=== PATIENT | female | born 2000 | race Caucasian/White ===

== ENCOUNTER → 2018-01-25 | Outpatient (CLI) | payer BC ==
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
== END | disposition home or self-care (01) ==
LOC: CT 14:14
PROVIDERS: ATTEND Physician Assistant
DX: R51 Headache (principal); R42 Dizziness and giddiness; H53.8 Other visual disturbances
CPT/HCPCS: 70450

== ENCOUNTER 2020-07-07 15:12 | Emergency (ER) | payer BC ==
[~2020-07-07] VITALS: Ht 157.5 cm; Wt 54.5 kg
--- NOTE | 2020-07-07 15:29 | PHYS DOC ---
Past History Past Medical History: Other (Illicit drug dependence) Drug Use: Amphetamine, Benzodiazepine, Cocaine, Marijuana, Methamphetamine, Opiates Adult General Chief Complaint Chief Complaint: DRUG ABUSE HPI HPI Patient is a 20-year-old female who presents for drug abuse. Patient has a long history of this, reports being addicted to heroin and opioids predominantly. Patient has had spells of abstinence but relapses often. Patient reports using methamphetamine and heroin approximately 24 hours ago, in addition, patient took a friend's " I think fentanyl laced Percocet" at that time. Patient reports being extremely intoxicated ever since. She fell asleep and woke up " not feeling right" prompting her to come in for evaluation. She reports continued feelings of being high, mild headache, and paresthesias in upper extremities. Denies any vision changes, chest pain, shortness of breath, abdominal pain, urinary symptoms. She is wanting help at this time Review of Systems Review of Systems Fourteen body systems of review of systems have been reviewed. See HPI for pertinent positives and negative responses, other serrano all other systems are negative, non-pertinent or non-contributory Physical Exam Physical Exam Constitutional: Well developed, well nourished, no acute distress, non-toxic appearance. HENT: Normocephalic, atraumatic, bilateral external ears normal, oropharynx moist, no oral exudates, nose normal. Eyes: PERRLA, EOMI, conjunctiva normal, no discharge. Neck: Normal range of motion, no tenderness, supple, no stridor. Cardiovascular: Heart rate regular, sinus rhythm, no murmurs rubs or gallops Lungs & Thorax: Bilateral breath sounds clear to auscultation Abdomen: Bowel sounds normal, soft, no tenderness, no masses, no pulsatile masses. Nonsurgical abdomen, no peritoneal signs Skin: Warm, dry, no erythema, no rash. Back: No tenderness, no CVA tenderness. Extremities: No tenderness, no cyanosis, no clubbing, ROM intact, no edema. Neurologic: Alert and oriented X 3, grossly normal motor & sensory function, no focal deficits noted. Psychologic: Tearful affect, judgement normal, anxious mood Current Patient Data Vital Signs Vital Signs Date Time Temp Pulse Resp B/P (MAP) Pulse Ox O2 Delivery O2 Flow Rate FiO2 07/07/20 16:17 98.6 94 18 115/62 (79) 97 Lab Results Laboratory Tests Test 9/12/20 15:23 07/07/20 15:35 07/07/20 15:45 Urine Collection Type Unknown Urine Color Yellow Urine Clarity Hazy Urine pH 6.5 Urine Specific [place] >=1.030 Urine Protein Trace (NEG-TRACE) Urine Glucose (UA) Neg mg/dL (NEG) Urine Ketones (Stick) Neg mg/dL (NEG) Urine Blood Trace (NEG) Urine Nitrite Neg (NEG) Urine Bilirubin Neg (NEG) Urine Urobilinogen Dipstick 0.2 mg/dL (0.2 mg/dL) Urine Leukocyte Esterase Neg (NEG) Urine RBC 1-2 /HPF (0-2) Urine WBC 1-4 /HPF (0-4) Urine Squamous Epithelial Cells Mod /LPF Urine Bacteria Few /HPF (0-FEW) Urine Mucus Marked /LPF Urine Opiates Screen Neg (NEG) Urine Methadone Screen Neg (NEG) Urine Barbiturates Neg (NEG) Urine Phencyclidine Screen Neg (NEG) Urine Amphetamine/Methamphetamine Pos (NEG) Urine Benzodiazepines Screen Pos (NEG) Urine Cocaine Screen Neg (NEG) Urine Cannabinoids Screen Pos (NEG) Urine Ethyl Alcohol Neg (NEG) White Blood Count 10.6 x10^3/uL (4.0-11.0) Red Blood Count 4.56 x10^6/uL (3.50-5.40) Hemoglobin 14.5 g/dL (12.0-15.5) Hematocrit 43.7 % (36.0-47.0) Mean Corpuscular Volume 96 fL (79-100) Mean Corpuscular Hemoglobin 32 pg (25-35) Mean Corpuscular Hemoglobin Concent 33 g/dL (31-37) Red Cell Distribution Width 13.2 % (11.5-14.5) Platelet Count 222 x10^3/uL (140-400) Neutrophils (%) (Auto) 73 % (31-73) Lymphocytes (%) (Auto) 19 % (24-48) Monocytes (%) (Auto) 7 % (0-9) Eosinophils (%) (Auto) 1 % (0-3) Basophils (%) (Auto) 0 % (0-3) Neutrophils # (Auto) 7.7 x10^3uL (1.8-7.7) Lymphocytes # (Auto) 2.0 x10^3/uL (1.0-4.8) Monocytes # (Auto) 0.7 x10^3/uL (0.0-1.1) Eosinophils # (Auto) 0.1 x10^3/uL (0.0-0.7) Basophils # (Auto) 0.0 x10^3/uL (0.0-0.2) Sodium Level 141 mmol/L (136-145) Potassium Level 3.6 mmol/L (3.5-5.1) Chloride Level 104 mmol/L (98-107) Carbon Dioxide Level 25 mmol/L (21-32) Anion Gap 12 (6-14) Blood Urea Nitrogen 9 mg/dL (7-20) Creatinine 0.7 mg/dL (0.6-1.0) Estimated GFR (Cockcroft-Gault) 104.6 BUN/Creatinine Ratio 13 (6-20) Glucose Level 89 mg/dL (70-99) Calcium Level 9.6 mg/dL (8.5-10.1) Total Bilirubin 0.8 mg/dL (0.2-1.0) Aspartate Amino Transf (AST/SGOT) 13 U/L (15-37) Alanine Aminotransferase (ALT/SGPT) 16 U/L (14-59) Alkaline Phosphatase 68 U/L (46-116) Creatine Kinase 67 U/L (26-192) Troponin I Quantitative < 0.017 ng/mL (0-0.055) Total Protein 7.8 g/dL (6.4-8.2) Albumin 4.5 g/dL (3.4-5.0) Albumin/Globulin Ratio 1.4 (1.0-1.7) Bedside Urine HCG, Qualitative hcg negative (Negative) EKG EKG EKG ordered and interpreted by myself at 1613 hrs. as sinus rhythm at 56 bpm, unremarkable intervals, no axis deviation, incomplete right bundle branch block, no acute ischemic findings, no STEMI Radiology/Procedures Radiology/Procedures [] Course & Med Decision Making Course & Med Decision Making Well-appearing ambulatory patient seen on immediate ER arrival ABCs grossly non-concerning Comprehensive history and physical exam obtained, subsequent diagnostic work-up ordered IV access obtained, 1 L IV normal saline and 325 mg p.o. Tylenol administered Patient observed and reassessed numerous times throughout ER visit by various infertility medical assistant. Remained stable without any concerning changes and vitals, mentation and/or other physical exam findings I discussed most likely diagnosis of residual effects of ongoing illicit substance use. I discussed limited need for further diagnostic work-up and/or need for admission for continued medical care given patient is hemodynamically stable and tolerating p.o. intake I did disclose this might be an acute presentation of more concerning pathology but again this is less likely Patient has PCP in local area but has not followed up in several months, I advised her to do so. Patient also has numerous resources and contact information from prior inpatient substance abuse treatment facilities for which she wants to reach out for help again, I agree with this Ultimately, patient fit and stable for discharge home with continued supportive care and illicit drug use cessation advised Strict return precautions were discussed with good understanding by patient, all questions and concerns addressed prior to ER departure home. Patient had friend come and pick her up to drive her home Dragon Disclaimer Dragon Disclaimer This electronic medical record was generated, in whole or in part, using a voice recognition dictation system. Departure Departure: Impression: Primary Impression: Polysubstance abuse Additional Impression: Polysubstance dependence Disposition: 01 HOME/RESIDENCE PRIOR TO ADM Condition: STABLE Referrals: PCP,NO (PCP) Patient Instructions: Addiction and the Family, Alcohol and Drug Addiction, Finding Treatment Justification of Admission: Justification of Admission: Justification of Admission Dx: N/A Problem Qualifiers LIZ DENNIS DO Jul 07, 2020 15:29
[2020-07-07] MEDS ORDERED: IV NORMAL SALINE 1,000ML 1,000 ML IV ONE (15:30)
[2020-07-07 15:55] LABS: BASO % 0 % (0-3); EOS # 0.1 x10^3/uL (0.0-0.7); EOS % 1 % (0-3); HEMATOCRIT 43.7 % (36.0-47.0); HEMOGLOBIN 14.5 g/dL (12.0-15.5); LYMPH % 19 % (24-48); MEAN CORPUSCULAR HEMOGLOBIN 32 pg (25-35); MEAN CORPUSCULAR HGB CONC 33 g/dL (31-37); MEAN CORPUSCULAR VOLUME 96 fL (79-100); MONO # 0.7 x10^3/uL (0.0-1.1); MONO % 7 % (0-9); NEUT # 7.7 x10^3uL (1.8-7.7); NEUT % 73 % (31-73); PLATELET COUNT 222 x10^3/uL (140-400); RED BLOOD COUNT 4.56 x10^6/uL (3.50-5.40); RED CELL DISTRIBUTION WIDTH 13.2 % (11.5-14.5); WHITE BLOOD COUNT 10.6 x10^3/uL (4.0-11.0)
[2020-07-07] MEDS ORDERED: ACETAMINOPHEN 325 MG TABLET PO ONE (15:59)
[2020-07-07 16:02] LABS: CALCIUM 9.6 mg/dL (8.5-10.1); CREATININE 0.7 mg/dL (0.6-1.0); GFR 104.6; POTASSIUM 3.6 mmol/L (3.5-5.1)
[2020-07-07 16:03] LABS: AMPHETAMINE/METHAMPHETAMINE POS (NEG); BARBITURATES NEG (NEG); BENZODIAZEPINES POS (NEG); CANNABINOIDS POS (NEG); COCAINE NEG (NEG); METHADONE NEG (NEG); OPIATES NEG (NEG); PHENCYCLIDINE NEG (NEG)
[2020-07-07 16:08] LABS: ALBUMIN 4.5 g/dL (3.4-5.0); ALBUMIN/GLOBULIN RATIO 1.4 (1.0-1.7); TOTAL BILIRUBIN 0.8 mg/dL (0.2-1.0); TOTAL PROTEIN 7.8 g/dL (6.4-8.2)
[2020-07-07 16:16] LABS: BACTERIA,URINE FEW /HPF (0-FEW); BILIRUBIN,URINE NEG (NEG); CLARITY,URINE HAZY; COLOR,URINE YELLOW; GLUCOSE,URINE NEG (NEG); NITRITE,URINE NEG (NEG); SQUAMOUS EPITHELIAL CELL,UR MOD /LPF; UROBILINOGEN,URINE 0.2 mg/dL (0.2 mg/dL)
[2020-07-07 16:17] VITALS: BP 115/62
--- NOTE | 2020-07-08 09:43 | EKG ---
[address] [address] Test Date: 2020-07-07 Test Time: 16:10:04 Pat Name: KAMRON POLLOCK Department: Room: Gender: F Sample Book Maker: TEJAL : 2000 Requested By: LIZ DENNIS Order Number: [id number] Reading MD: Measurements Intervals [place] Rate: 56 P: 68 UT: 138 QRS: 46 QRSD: 98 T: 40 QT: 436 QTc: 423 Interpretive Statements SINUS RHYTHM LEFT ATRIAL ABNORMALITY INCOMPLETE RIGHT BUNDLE BRANCH BLOCK ABNORMAL ECG RI6.02 No previous ECG available for comparison
== END 2020-07-07 17:49 | disposition home or self-care (01) ==
LOC: ER 15:12
DX: F19.20 Other psychoactive substance dependence, uncomplicated (principal); F15.10 Other stimulant abuse, uncomplicated; F14.10 Cocaine abuse, uncomplicated; F12.10 Cannabis abuse, uncomplicated; F11.10 Opioid abuse, uncomplicated
CPT/HCPCS: 36415; 80053; 80307; 81001; 81025; 82550; 84484; 85025; 93005; 99284

== ENCOUNTER 2020-12-04 18:16 | Emergency (ER) | payer BC ==
[~2020-12-04] VITALS: Ht 157.5 cm; Wt 50.1 kg
--- NOTE | 2020-12-04 18:20 | PHYS DOC ---
Past History Past Medical History: Migraines, UTI, Other Past Surgical History: No Surgical History Alcohol Use: None Drug Use: Amphetamine, Benzodiazepine, Cocaine, Marijuana, Methamphetamine, Opiates General Adult HPI: HPI: Patient is a 20 year old female who presents with above hx and complaints of headache and ear ache. Ear ache started in Lt ear and move to Rt. ear. No hx. of trauma. Has had Dysuria and was taking AZO -otc. Pt. does complain of mild headache. Has hx migraines. No hx of travel or specific ill contacts. Pt. follows with Dr. Potter for primary care. Pt. does smoke and use marijuana. Pt . denies any immunosuppression or HIV. Review of Systems: Review of Systems: Constitutional: Denies fever or chills Eyes: Denies change in visual acuity HENT: complaints of ear ache Respiratory: Denies cough or shortness of breath Cardiovascular: Denies chest pain or edema GI: Denies abdominal pain, nausea, vomiting, bloody stools or diarrhea : Denies dysuria Musculoskeletal: Denies back pain or joint pain Integument: Denies rash Neurologic: Complains of headache,. Last focal weakness or sensory changes Endocrine: Denies polyuria or polydipsia Lymphatic: Denies swollen glands Psychiatric: Denies depression or anxiety Family History: Family History: Noncontributory to presentation Current Medications: Current Meds: See nursing for home meds Allergies: Allergies: Allergies Coded Allergies Type Severity Reaction Last Updated Verified No Known Drug Allergies 07/07/20 No Physical Exam: PE: Constitutional: Well developed, well nourished, no acute distress, non-toxic appearance. [] HENT: Normocephalic, atraumatic, bilateral external ears normal, oropharynx moist, mild injection pharynx, no oral exudates, nose normal. Mild external canal irritation bilateral Eyes: PERRLA, EOMI, conjunctiva normal, no discharge. [] Neck: Normal range of motion, no tenderness, supple, no stridor. [] Cardiovascular:Heart rate regular rhythm, no murmur [] Lungs & Thorax: Bilateral breath sounds equal apex on o auscultation [. Few scattered wheezes Abdomen: Bowel sounds normal, soft, no tenderness, no masses, no pulsatile masses. [] Skin: Warm, dry, no erythema, no rash. [] Back: No tenderness, no CVA tenderness. [] Extremities: No tenderness, no cyanosis, no clubbing, ROM intact, no edema. [] Neurologic: Alert and oriented X 3, normal motor function, normal sensory function, no focal deficits noted. DTRs +2 patella brachial. Sap Basis equal. No drift. Ambulatory without problems. Psychologic: Affect anxious, judgement normal, mood normal. [] EKG: EKG: [] Radiology/Procedures: Radiology/Procedures: [] Heart Score: Risk Factors: Risk Factors: DM, Current or recent (<one month) smoker, HTN, HLP, family history of CAD, obesity. Risk Scores: Score 0 - 3: 2.5% MACE over next 6 weeks - Discharge Home Score 4 - 6: 20.3% MACE over next 6 weeks - Admit for Clinical Observation Score 7 - 10: 72.7% MACE over next 6 weeks - Early Invasive Strategies Course & Med Decision Making: Course & Med Decision Making Pertinent Labs and Imaging studies reviewed. (See chart for details) Patient Tylenol and ibuprofen for pain. For pain may take Vicoprofen up to 4 times a day. Use Cortisporin eardrops both ears up to 4 times a day. Follow-up Mauri. Return if any concerns. Avoid use of Q-tips in ears. Follow-up in Urine cultures. Keep ears covered when out in the cold. Follow-up primary care. Impression: 1. Otitis Externa 2. Complaints of dysuria [] Dragon Disclaimer: Dragon Disclaimer: This electronic medical record was generated, in whole or in part, using a voice recognition dictation system. Departure Departure: Referrals: JOSE CARLOS POTTER MD (PCP) Scripts Hydrocodone/Ibuprofen (HYDROCODONE-IBUPROFEN 7.5-200 ) 1 Each Tablet 1 TAB PO PRN Q6HRS PRN for PAIN, #30 TAB 0 Refills Prov: MAIN RODRIGUEZ MD 12/04/20 Hydrocodone/Ibuprofen (HYDROCODONE-IBUPROFEN 7.5-200 ) 1 Each Tablet 1 TAB PO PRN Q6HRS PRN for PAIN, #30 TAB 0 Refills Prov: MAIN RODRIGUEZ MD 12/04/20 Dragabbe Disclaimer This chart was dictated in whole or in part using Voice Recognition software in a busy, high-work load, and often noisy Emergency Department environment. It may contain unintended and wholly unrecognized errors or omissions. MAIN RODRIGUEZ MD Dec 04, 2020 18:20
[2020-12-04] MEDS ORDERED: ACETAMINOPHEN 500 MG TABLET PO ONE (18:45)
[2020-12-04] MEDS ORDERED: NEOMYCIN/POLYMYXIN/HC OTIC SUSPENSION 10ML BOTTLE. AU SCH (19:00)
[2020-12-04 19:12] LABS: BARBITURATES NEG (NEG); BENZODIAZEPINES POS (NEG); CANNABINOIDS POS (NEG); CLARITY,URINE CLEAR; COCAINE NEG (NEG); METHADONE NEG (NEG); OPIATES NEG (NEG); PHENCYCLIDINE NEG (NEG)
[2020-12-04 19:13] LABS: COLOR,URINE ORANGE
[2020-12-04 19:16] LABS: RBC,URINE OCC /HPF (0-2)
[2020-12-04 19:17] LABS: AMPHETAMINE/METHAMPHETAMINE NEG (NEG)
[2020-12-04 19:18] LABS: BACTERIA,URINE FEW /HPF (0-FEW); SQUAMOUS EPITHELIAL CELL,UR OCC /LPF; WBC,URINE OCC /HPF (0-4)
[2020-12-04] MEDS ORDERED: HYDR-1179 PO ×2 (19:23→19:26)
[2020-12-04 19:25] VITALS: BP 131/77
== END 2020-12-04 19:30 | disposition home or self-care (01) ==
LOC: ER 18:16
DX: H60.92 Unspecified otitis externa, left ear (principal); R30.0 Dysuria; G43.909 Migraine, unspecified, not intractable, without status migrainosus; Z87.440 Personal history of urinary (tract) infections
CPT/HCPCS: 36415; 80307; 81001; 81025; 99283

== ENCOUNTER 2021-06-10 19:24 | Emergency (ER) | payer BC ==
[~2021-06-10] VITALS: Ht 157.5 cm; Wt 50.1 kg
[~2021-06-10 19:24] MED LIST: HYDR-1179 PO
--- NOTE | 2021-06-10 19:53 | PHYS DOC ---
Past History Past Medical History: Migraines, UTI, Other Past Surgical History: No Surgical History Alcohol Use: Occasionally Drug Use: Amphetamine, Benzodiazepine, Cocaine, Marijuana, Methamphetamine, Opiates Adult General Chief Complaint Chief Complaint: OVERDOSE [facility] HPI Patient is a 21 year old female who presents with overdose having taken 9 tablets of 50 mg of trazodone. Patient states that she has been dealing with a lot of issues including getting eviction notice today, was also tired having not slept and now felt that she should take medication but decided that due to all his problems, she would perhaps end her life. There were 10 tablets left in her bottle 1 of which spilled and she took 9 tablets approximately 45 minutes prior to arrival to emergency department. She then became remorseful and called ambulance on her own. She on arrival states that she is not actively trying to kill herself but is dealing with a lot of situation. She denies any violent thoughts. She previously has had 1 previous suicidal ideation episode 2 to 3 years ago and was admitted to [facility]. She normally does not take trazodone on a regular basis but have it as it was prescribed previously. She states that she has had some depression and anxiety. She at present denies any difficulty breathing, chest pain, shortness of breath, fever, abdominal pain, dysuria. She does admit to using meth amphetamine within the last day or so. She denies other complaints. Review of Systems Review of Systems Constitutional: Denies fever or chills [] Eyes: Denies change in visual acuity, redness, or eye pain [] HENT: Denies nasal congestion or sore throat [] Respiratory: Denies cough or shortness of breath [] Cardiovascular: No additional information not addressed in HPI [] GI: Denies abdominal pain, nausea, vomiting, bloody stools or diarrhea [] : Denies dysuria or hematuria [] Musculoskeletal: Denies back pain or joint pain [] Integument: Denies rash or skin lesions [] Neurologic: Denies headache, focal weakness or sensory changes [] Endocrine: Denies polyuria or polydipsia [] All other systems were reviewed and found to be within normal limits, except as documented in this note. Family History Family History Unremarkable Current Medications Current Medications Trazodone but is not taking it on a regular basis Allergies Allergies Allergies Coded Allergies Type Severity Reaction Last Updated Verified No Known Drug Allergies 07/07/20 No Physical Exam Physical Exam Vital signs unremarkable Constitutional: Well developed, well nourished, no acute distress, non-toxic appearance. [] HENT: Normocephalic, atraumatic, bilateral external ears normal, oropharynx moist, no oral exudates, nose normal. [] Eyes: PERRLA, EOMI, conjunctiva normal, no discharge. [] Neck: Normal range of motion, no tenderness, supple, no stridor. [] Cardiovascular:Heart rate regular rhythm, no murmur [] Lungs & Thorax: Bilateral breath sounds clear to auscultation [] Abdomen: Bowel sounds normal, soft, no tenderness, no masses, no pulsatile masses. [] Skin: Warm, dry, no erythema, no rash. [] Back: No tenderness, no CVA tenderness. [] Extremities: No tenderness, no cyanosis, no clubbing, ROM intact, no edema. [] Neurologic: Alert and oriented X 3, normal motor function, normal sensory function, no focal deficits noted. [] Psychologic: Affect flat denies actively being suicidal but does feel there is a lot of pressure on her not sure how to deal with it Current Patient Data Vital Signs Blood pressure 103/78, pulse 59, respiratory rate of 16, pulse ox 98%, t emperature 97.1. EKG EKG Twelve-lead EKG shows sinus rhythm at 54 bpm with nonspecific abnormalities with possible incomplete right bundle branch block but no significant ST segment depression or elevation amounting to acute ischemia. QT interval was 470. A repeat EKG was done after 6 hours which shows heart rate of 64 bpm, QT interval of 500. I repeated the EKG just prior to discharge at 3:35 AM approximately 8- hour after overdose and it shows normal sinus rhythm at 65 bpm with QT interval at 468 which is less than when she arrived. Radiology/Procedures Radiology/Procedures [] Heart Score C/O Chest Pain: No Risk Factors: Risk Factors: DM, Current or recent (<one month) smoker, HTN, HLP, family history of CAD, obesity. Risk Scores: Risk Factors: DM, Current or recent (<one month) smoker, HTN, HLP, family history of CAD, obesity. Course & Med Decision Making Course & Med Decision Making Patient had presented after taking multiple tablets of trazodone (unknown if immediate or sustained release). She presented hemodynamically stable. She initially had suicidal ideation but had immediate remorse and called ambulance on her own. She was placed on panel monitor laboratory studies were done which were fairly unremarkable. Her urine drug screen showed positive amphetamine and cannabinoids. Patient was seen by mental health worker and screened and and their extensive evaluation they felt that the patient is stable for discharge. Patient indicated that she was no longer suicidal and has proper outpatient follow-up arranged. After 8 hours of observation she has not demonstrated any lengthening of her QT interval. She remained hemodynamically stable without any complain or any arrhythmia on panel monitor. She will be discharged home to her mother who is going to stay with her and observe her. Dragon Disclaimer Dragon Disclaimer This electronic medical record was generated, in whole or in part, using a voice recognition dictation system. Departure Departure: Impression: Primary Impression: Overdose of medication Additional Impression: Suicidal ideation Disposition: 01 HOME / SELF CARE / HOMELESS Condition: STABLE Referrals: JOSE CARLOS CONLEY MD (PCP) Please see your doctor in the next 2 days. If you experience any difficulty breathing, chest pain, not feeling well please come back to ER. Problem Qualifiers ARTIS WARD MD Jun 10, 2021 19:52
[2021-06-10 20:18] LABS: BASO % 0 % (0-3); EOS # 0.1 x10^3/uL (0.0-0.7); EOS % 1 % (0-3); HEMATOCRIT 40.2 % (36.0-47.0); HEMOGLOBIN 13.4 g/dL (12.0-15.5); LYMPH % 25 % (24-48); MEAN CORPUSCULAR HEMOGLOBIN 31 pg (25-35); MEAN CORPUSCULAR HGB CONC 33 g/dL (31-37); MEAN CORPUSCULAR VOLUME 93 fL (79-100); MONO # 0.7 x10^3/uL (0.0-1.1); MONO % 9 % (0-9); NEUT # 5.2 x10^3uL (1.8-7.7); NEUT % 65 % (31-73); PLATELET COUNT 200 x10^3/uL (140-400); RED BLOOD COUNT 4.32 x10^6/uL (3.50-5.40); RED CELL DISTRIBUTION WIDTH 13.9 % (11.5-14.5); WHITE BLOOD COUNT 7.9 x10^3/uL (4.0-11.0)
[2021-06-10 20:27] LABS: CALCIUM 8.9 mg/dL (8.5-10.1); CREATININE 0.7 mg/dL (0.6-1.0); GFR 103.7; POTASSIUM 3.4 mmol/L (3.5-5.1)
[2021-06-10 20:35] LABS: ACETAMIN < 2 mcg/mL (10-30); SALIC < 2.8 mg/dL (2.8-20.0)
[2021-06-10 20:58] LABS: BARBITURATES NEG (NEG); BENZODIAZEPINES POS (NEG); CANNABINOIDS POS (NEG); COCAINE NEG (NEG); METHADONE NEG (NEG); OPIATES NEG (NEG); PHENCYCLIDINE NEG (NEG); U PREG PATIENT NEGATIVE (NEG)
[2021-06-10 20:59] LABS: AMPHETAMINE/METHAMPHETAMINE POS (NEG)
[2021-06-10] MEDS ORDERED: POTASSIUM CHLORIDE 20 MEQ TABLET.ER. PO ONE (23:45)
[2021-06-11 03:54] VITALS: BP 100/59
--- NOTE | 2021-06-11 06:30 | EKG ---
[address] [address] Test Date: 2021-06-10 Test Time: 19:42:28 Pat Name: KAMRON POLLOCK Department: Room: Gender: F Repair Specialist: : 2000 Requested By: ARTIS WARD Order Number: [id number] Reading MD: Measurements Intervals [place] Rate: 54 P: 112 NC: 126 QRS: 131 QRSD: 94 T: 153 QT: 512 QTc: 492 Interpretive Statements SINUS RHYTHM ABNORMAL RIGHT AXIS DEVIATION INCOMPLETE RIGHT BUNDLE BRANCH BLOCK CONSIDER RIGHT VENTRICULAR HYPERTROPHY QRS(T) CONTOUR ABNORMALITY CONSISTENT WITH HIGH LATERAL MYOCARDIAL DAMAGE ST & T ABNORMALITY, CONSIDER INFERIOR ISCHEMIA OR LEFT VENTRICULAR STRAIN ABNORMAL ECG RI6.02 Compared to ECG 06/10/2021 19:38:04 No significant changes
--- NOTE | 2021-06-11 06:44 | EKG ---
[address] [address] Test Date: 2021-06-11 Test Time: 01:09:56 Pat Name: KAMRON POLLOCK Department: Room: Gender: F Clay Hoister: : 2000 Requested By: ARTIS WARD Order Number: [id number] Reading MD: Measurements Intervals [place] Rate: 64 P: 90 W[place]: 114 QRS: 54 QRSD: 86 T: 25 QT: 500 QTc: 515 Interpretive Statements SINUS RHYTHM INCOMPLETE RIGHT BUNDLE BRANCH BLOCK T ABNORMALITY IN INFERIOR LEADS PROLONGED QT ABNORMAL ECG RI6.02 Compared to ECG 06/10/2021 19:42:28 Prolonged QT interval now present Right-axis deviation no longer present Possible ischemia no longer present T-wave abnormality still present
--- NOTE | 2021-06-11 06:44 | EKG ---
[address] [address] Test Date: 2021-06-11 Test Time: 03:28:13 Pat Name: KAMRON POLLOCK Department: Room: Gender: F Sheep Herder: : 2000 Requested By: ARTIS WARD Order Number: [id number] Reading MD: Measurements Intervals [place] Rate: 65 P: 31 IA: 122 QRS: 51 QRSD: 90 T: 3 QT: 468 QTc: 488 Interpretive Statements SINUS RHYTHM LEFT ATRIAL ABNORMALITY INCOMPLETE RIGHT BUNDLE BRANCH BLOCK T ABNORMALITY IN INFERIOR LEADS PROLONGED QT ABNORMAL ECG RI6.02 Compared to ECG 06/11/2021 01:09:56 Atrial abnormality now present T-wave abnormality still present
== END 2021-06-11 04:02 | disposition home or self-care (01) ==
LOC: ER 19:24
DX: T43.212A Poisoning by selective serotonin and norepinephrine reuptake inhibitors, intentional self-harm, initial encounter (principal); F41.9 Anxiety disorder, unspecified; F32.9 Major depressive disorder, single episode, unspecified; R45.851 Suicidal ideations; G43.809 Other migraine, not intractable, without status migrainosus; Z20.822 Contact with and (suspected) exposure to COVID-19; Y92.89 Other specified places as the place of occurrence of the external cause
CPT/HCPCS: 36415; 80048; 80307; 80329; 81025; 83735; 85025; 87426; 93005; 99285; U0003; G0480